=== PATIENT | male | born 1970 ===

== ENCOUNTER 2018-04-08 04:57 | Emergency (ER) | payer OTHER ==
[2018-04-08 04:58] VITALS: BMI 28.3
[2018-04-08 05:19] VITALS: RESP 18; TEMP 97.5
[2018-04-08] MEDS ORDERED: Sodium Chloride 0.9% 1,000 ML IV STA (05:54)
[2018-04-08 06:16] LABS: BASO % 0.2 % (0.0-2.0); EOS % 0.2 % (0.0-4.0); HEMOGLOBIN 16.3 g/dL (12.0-18.0); LYMPH # 1.1 K/uL (1.0-4.3); LYMPH % 8.3 % (20.0-40.0); MEAN CELL VOLUME 86.7 fl (80.0-94.0); MEAN CORPUSCULAR HEMOGLOBIN 29.4 pg (27.0-31.0); MEAN CORPUSCULAR HGB CONC 33.9 g/dL (33.0-37.0); MEAN PLATELET VOLUME 6.9 fl (7.2-11.7); MONO # 0.7 K/uL (0.0-0.8); MONO % 5.4 % (0.0-10.0); NEUT # 11.4 K/uL (1.8-7.0); NEUT % 85.9 % (50.0-75.0); PLATELET COUNT 262 K/uL (130-400); RBC 5.54 Mil/uL (4.40-5.90); RED CELL DISTRIBUTION WIDTH 13.3 % (11.5-14.5); WHITE BLOOD COUNT 13.2 K/uL (4.8-10.8)
--- NOTE | 2018-04-08 06:19 | ED PDOC ---
HPI: Abdomen Time Seen by Provider: 04/08/18 05:20 Chief Complaint (Nursing): GI Problem Chief Complaint (Provider): GI Problem History Per: Patient History/Exam Limitations: no limitations Onset/Duration Of Symptoms: Days (x2) Associated Symptoms: Vomiting, Diarrhea, Other (headache) Additional Complaint(s): 47 years old male presents to ER for evaluation of vomiting and diarrhea and headache onset 2 days ago. Patient reports he ate heavy and too quick on Saturday and started to have abdominal pain. He reports abdominal pain comes when vomiting only. Patient reports he had gallbladder removal 3 to 4 years ago. denies any abdominal pain at this time. PMD: [facility] Past Medical History Reviewed: Historical Data, Nursing Documentation, Vital Signs Vital Signs: Last Vital Signs Temp 97.5 F L 04/08/18 05:16 Pulse 113 H 04/08/18 05:16 Resp 18 04/08/18 05:16 BP 137/92 H 04/08/18 05:16 Pulse Ox 97 04/08/18 05:16 - Medical History PMH: No Chronic Diseases - Surgical History Surgical History: Cholecystectomy - Family History Family History: States: Unknown Family Hx - Social History Current smoker - smoking cessation education provided: No Alcohol: None Drugs: Denies - Immunization History Hx Tetanus Toxoid Vaccination: No Hx Influenza Vaccination: No Hx Pneumococcal Vaccination: No - Home Medications Home Medications: Ambulatory Orders Medication Instructions Recorded Atropine/Diphenoxylate [Lonox 1 tab PO Q8 #10 tab 11/08/17 0.025 MG-2.5 MG] Ondansetron [Zofran] 4 mg PO Q6H PRN #4 tab 04/08/18 - Allergies Allergies/Adverse Reactions: Allergies Allergy/AdvReac Type Severity Reaction Status Date / Time No Known Allergies Allergy Verified 12/25/17 10:55 Review of Systems ROS Statement: Except As Marked, All Systems Reviewed And Found Negative Gastrointestinal: Positive for: Vomiting, Abdominal Pain, Diarrhea Physical Exam - Reviewed Nursing Documentation Reviewed: Yes Vital Signs Reviewed: Yes - Physical Exam Appears: Positive for: Well, No Acute Distress Head Exam: Positive for: ATRAUMATIC, NORMOCEPHALIC Skin: Positive for: Normal Color, Warm, Dry Eye Exam: Positive for: Normal appearance Neck: Positive for: Normal Cardiovascular/Chest: Positive for: Regular Rate, Rhythm. Negative for: Murmur Respiratory: Positive for: Normal Breath Sounds. Negative for: Wheezing Gastrointestinal/Abdominal: Positive for: Normal Exam, Bowel Sounds, Soft. Negative for: Tenderness, Mass, Distended, Guarding, Rebound, Hernia, Asicites Extremity: Positive for: Normal ROM Neurologic/Psych: Positive for: Alert, Oriented (x3) - Laboratory Results Result Diagrams: 04/08/18 06:04 04/08/18 06:04 - ECG O2 Sat by Pulse Oximetry: 97 (RA) Pulse Ox Interpretation: Normal Medical Decision Making Medical Decision Making: Time: 552 Initial impression: abdominal pain with normal physical exam and no pain -likely viral gastroenteritis Initial Plan: --CMP --Lipase --CBC --Pepcid 20 mg IVP --Zofran 4 mg IV --Toradol 30 mg IV --Urine C&S --Urinalysis reviewed labs, benign pt without fever Upon reevaluation, patient does not have pain as well as non-tender physical exam of abdomen. He is requesting a tray of food ' potassium will be repleated. pt aware of borderline lowK instructed to follow up with doctor but if the pain worsens or returns to come to the ER imediately pt verbalizes understanding Scribe Attestation: Documented by Cathi Helton, acting as a scribe for Shira Brooks MD. Provider Scribe Attestation: All medical record entries made by the Scribe were at my direction and pers onally dictated by me. I have reviewed the chart and agree that the record accurately reflects my personal performance of the history, physical exam, medical decision making, and the department course for this patient. I have also personally directed, reviewed, and agree with the discharge instructions and disposition. Disposition - Clinical Impression Clinical Impression: Gastroenteritis - Patient ED Disposition Is Patient to be Admitted: No Counseled Patient/Family Regarding: Studies Performed, Diagnosis, Need For Followup - Disposition Disposition: Routine/Home Disposition Time: 07:00 Condition: IMPROVED Additional Instructions: follow up with your doctor at [facility] in 1-2 day if the pain persists or returns, please come back to the ER immediately Prescriptions: Ondansetron [Zofran] 4 mg PO Q6H PRN #4 tab PRN Reason: Nausea/Vomiting Instructions: Viral Gastroenteritis, Adult (DC) Forms: [email or web address] (Turkish), [employer] (Setswana) Print Language: BULGARIAN
[2018-04-08 06:21] LABS: ALB/GLOB RATIO 1.4 (1.0-2.1); ALBUMIN 4.5 g/dL (3.5-5.0); ALT/SGPT 43 U/L (21-72); AST/SGOT 28 U/L (17-59); BLOOD UREA NITROGEN 14 mg/dl (9-20); CALCIUM 9.3 mg/dL (8.4-10.2); GFR NON-AFRICAN AMERICAN > 60; LIPASE 18 U/L (23-300)
[2018-04-08] MEDS ORDERED: Potassium Chloride 20 mEq ER Tab PO ONE ×2 (07:06→07:13)
[2018-04-08 07:19] VITALS: BP 122/76; PULSE 88
[2018-04-08 11:21] LABS: BANDS 1 % (0-2); EOSINOPHIL 4 % (0-7); LYMPHOCYTE 5 % (20-50); MONOCYTE 1 % (0-10); NEUTROPHIL 89 % (42-75); PLATELET ESTIMATE NORMAL (NORMAL); TOTAL CELLS COUNTED 100
[2018-04-08 11:22] LABS: ANISOCYTOSIS SLIGHT
[2018-04-09 14:35] VITALS: O2SAT 97
== END 2018-04-08 07:28 | disposition home or self-care (01) ==
LOC: H.ER 04:57
DX: K52.9 Noninfective gastroenteritis and colitis, unspecified (principal)
CPT/HCPCS: 80053; 82948; 83690; 85025; 96374; 99283; J2405; J7030